=== PATIENT | female | born 1955 | race Caucasian/White ===

== ENCOUNTER 2020-01-26 09:05 | Emergency (ER) | payer MEDICARE, SELFPAY ==
[2020-01-26 09:12] VITALS: BP 150/70; PULSE 70; RESP 16; TEMP 36.8; O2SAT 99
--- NOTE | 2020-01-26 09:23 | ED.SKABFB ---
HPI - Skin/Abscess/Foreign Bdy General Chief complaint: Skin/Abscess/Foreign Body Stated complaint: Poison [place] Time Seen by Provider: 01/26/20 09:24 Source: patient and family History of Present Illness HPI narrative: PATIENT PRESENTS WITH A 5 DAY HISTORY OF ITCHY RASH TO LEFT ARMS AND RIGHT LOWER ABDOMEN. NO TROUBLE BREATHING NO SHORTNSS OF BREATH NO FEVER NO CHEST PAIN NO CONCERN FOR ZHENG. PATIENT STATES SHE WAS OUTSIDE WORKING AND THINKS SHE GOT INTO SOME POISON [place]. STATES SHE GETS IT EVERY YEAR. MD complaint: rash Related Data Home Medications Medication Instructions Recorded Confirmed denosumab 60 mg/mL subcutaneous 60 mg SUB-Q [id number] 09/22/19 syringe lansoprazole 30 mg capsule,delayed 30 mg PO DAILY 09/22/19 release obeticholic acid 10 mg tablet 10 mg PO DAILY 09/22/19 ursodiol 300 mg capsule 300 mg PO DAILY cap 09/22/19 Allergies Allergy/AdvReac Type Severity Reaction Status Date / Time Sulfa (Sulfonamide AdvReac Unknown Nausea and Verified 01/26/20 09:26 Antibiotics) Vomiting Review of Systems Review of Systems: Narrative: CONSTITUTIONAL: Denies fever, chills, or sweats. EYES: Denies visual changes, redness, or discharge. ENT: Denies rhinorrhea, congestion, sore throat, or otalgia. CARDIOVASCULAR: Denies chest pain, palpitations, or edema. RESPIRATORY: Denies cough or dyspnea. GASTROINTESTINAL: Denies abdominal pain, nausea, vomiting, or diarrhea. GENITOURINARY: Denies dysuria or hematuria. SKIN: Denies rash or itching. MUSCULOSKELETAL: Denies back pain, joint pain, or myalgia. NEUROLOGIC: Denies headache, numbness, or weakness. PSYCHIATRIC: Denies anxiety or depression. [facility] Past Medical History Medical History Age-related osteoporosis without current pathological fracture History of one miscarriage Hypercholesterolemia Osteoarthritis Primary biliary cholangitis UTI (urinary tract infection) Surgical History Surgical History History of breast surgery duct removal of left breast History of hysterectomy History of oophorectomy Family History Family History Father Hypertension HLD (hyperlipidemia) History of coronary artery bypass surgery Mother Family history of malignant neoplasm Osteoarthritis Daughter Osteoarthritis History of ITP Social History Social History Smoking status: Former smoker Smoking end date: 10/18/02 Alcohol intake: current Comments At time of signature, agree with nursing past medical, surgical, social and family history. There is no relevant family history pertinent to the presenting complaint Exam Narrative: Exam Narrative: GENERAL: Well-appearing, well-nourished, and in no acute distress. HEAD: Normocephalic, atraumatic. EYES: PERRLA and EOMI. ENT: Nares clear, no rhinorrhea or epistaxis. Mucous membranes moist. NECK: Supple. CHEST: Clear to auscultation. No respiratory distress. HEART: Regular rate and rhythm. No murmur heard. Normal peripheral pulses. ABDOMEN: Soft, nontender, nondistended, normal active bowel sounds. EXTREMITIES: Normal range of motion. No edema. SKIN: Warm, dry, no rash. RASH CONSISTENT WITH RHUS DERMATITIS. LINEAR LOPEZ WITH WET LIKE APPEARS ON NEW AREAS. DIFFERENT STAGES PRESENT. REDNESS TO LESIONS. NO SIGNS OF INFECTION OR CELLULITIS/ABSCESS. NO VESICLES. NO ULCERATIONS. NO RAISED URTICARIAL LESIONS. NO LESIONS ALONG THE WAISTBAND OR IN WEB SPACES. NO BURROWS. NO PETECHIAE. ? NEURO: No focal deficits. Alert and oriented x3. [place] Coma Scale Eye Opening: Spontaneous 4 [place]a Coma Scale Motor: Obeys Commands 6 [place] Coma Scale Verbal: Oriented 5 Maura Coma Scale Total 15 Course Vital Signs Vital signs: Vital Signs Temperature 36.8 C 01/26/20 09:12 Pulse Rate 70 04/
== END 2020-01-26 09:30 | disposition home or self-care (01) ==
PROVIDERS: Emergency Provider Nurse Practitioner Family; PCP Internal Medicine
DX: L23.7 Allergic contact dermatitis due to plants, except food (principal); Z87.891 Personal history of nicotine dependence; M81.0 Age-related osteoporosis without current pathological fracture; E78.00 Pure hypercholesterolemia, unspecified
CPT/HCPCS: 99213; G0463

== ENCOUNTER 2020-10-22 13:56 | Outpatient (CLI) | payer MEDICARE, SELFPAY ==
--- NOTE | ~2020-10-22 | DEXA_ITS ---
Bone Density Report Name: Leona Franks Age: 65 Sex: Female Ethnicity: White Date of : 1955 Indication: postmenopausal; hysterectomy; Referring Provider: HUNG SOTELO Study: Bone densitometry was performed. Exam Date: October 22, 2020 Accession number: [id number] Bone Density: Region BMD T-score Z-score Classification AP Spine (L1-L4) 0.688 -3.3 -1.3 Osteoporosis Femoral Neck (Left) 0.567 -2.5 -0.9 Osteoporosis Total Hip (Left) 0.710 -1.9 -0.5 Osteopenia Total Hip Bilateral Avg 0.709 -1.9 -0.6 Osteopenia Femoral Neck (Right) 0.578 -2.4 -0.8 Osteopenia Total Hip (Right) 0.707 -1.9 -0.6 Osteopenia World Health Organization criteria for BMD impression classify patients as: Normal (T-score at or above -1.0), Osteopenia (T-score between -1.0 and -2.5), or Osteoporosis (T-score at or below -2.5). 10-year Fracture Risk: FRAX not reported because: Some T-score for Spine Total or Hip Total or Femoral Neck at or below -2.5 Treated for osteoporosis Clinical Information Provided by Patient: Is being treated for osteoporosis Has used the following medications: Prolia (i.e. denosumab), Vitamin D, Calcium Has the following medical conditions: Hysterectomy Patient maximum height was 64.5 Menopause Age: 56 Drinks caffeinated beverages Onset of menses at age 12 Number of children 2 Impression: The patient has osteoporosis, based on the Total Spine T-score. Discussion: It is important to ask patients whether they are taking their medications and to encourage continued and appropriate compliance with their osteoporosis therapies to reduce fracture risk. It is also important to review their risk factors and encourage appropriate calcium and vitamin D intakes, exercise, fall prevention and other lifestyle measures. Follow-Up: Consider a repeat BMD and Vertebral Fracture Assessment (VFA) exam in 2 years or sooner if medically necessary, to reassess this patient's status. Reported by: [facility] on 10/22/2020 2:25:00 PM. Reviewed, dictated and finalized at location ANhung RIVAS
--- NOTE | ~2020-10-22 | MM_ITS ---
EXAMINATION: MM screening [facility] BI w kris HISTORY: Screening mammogram TECHNIQUE: Craniocaudal and mediolateral oblique 3-D tomosynthesis images were obtained and synthetic 2-D images were generated. CAD analysis was submitted and interpreted. COMPARISON: 09/25/2019, 08/16/2018, 07/29/2016 BREAST PARENCHYMAL COMPOSITION: The breasts are heterogeneously dense, which may obscure small masses . FINDINGS: There is no evidence of suspicious mass, calcification, or architectural distortion to sugg est malignancy in either breast. There has been no suspicious interval change. IMPRESSION: 1. No mammographic evidence of malignancy. 2. Recommend routine screening mammography in one year. BI-RADS Category 1: Negative Reviewed, dictated and finalized at location A. STITCHER
== END 2020-10-22 13:57 | disposition home or self-care (01) ==
LOC: ANHIMG 14:02
PROVIDERS: Visit Provider Obstetrics & Gynecology
DX: Z12.31 Encounter for screening mammogram for malignant neoplasm of breast (principal); Z78.0 Asymptomatic menopausal state; M81.0 Age-related osteoporosis without current pathological fracture; M85.852 Other specified disorders of bone density and structure, left thigh; M85.851 Other specified disorders of bone density and structure, right thigh
CPT/HCPCS: 77063; 77067; 77080

== ENCOUNTER 2022-11-17 12:53 | Outpatient (CLI) | payer MEDICARE, SELFPAY ==
--- NOTE | ~2022-11-17 | DEXA_ITS ---
Bone Density Report Name: DEANA RAMIREZ Age: 67 Sex: Female Ethnicity: White Date of : 1955 Indication: postmenopausal osteoporosis; monitoring treatment; hysterectomy; rheumatoid arthritis; Referring Provider: HUNG SOTELO Study: Bone densitometry was performed. Exam Date: November 17, 2022 Accession number: [id number] Bone Density: Region BMD T-score Z-score Classification AP Spine(L1-L4) 0.774 -2.5 -0.4 Osteoporosis Femoral Neck (Left) 0.618 -2.1 -0.3 Osteopenia Total Hip (Left) 0.733 -1.7 -0.2 Osteopenia Femoral Neck (Right) 0.581 -2.4 -0.7 Osteopenia Total Hip (Right) 0.686 -2.1 -0.6 Osteopenia Total Hip Mean 0.710 -1.9 -0.4 Osteopenia World Health Organization criteria for BMD impression classify patients as: Normal (T-score at or above -1.0), Osteopenia (T-score between -1.0 and -2.5), or Osteoporosis (T-score at or below -2.5). 10-year Fracture Risk: FRAX not reported because: Some T-score for Spine Total or Hip Total or Femoral Neck at or below -2.5 Treated for osteoporosis Previous Exams: Region Exam Age BMD T-score BMD Change BMD Change Date g/cm2 vs Baseline vs Previous AP Spine (L1-L4) 11/17/2022 67 0.774 -2.5 0.086 (12.5%)# 0.086 (12.5%)# 10/22/2020 65 0.688 -3.3 Total Hip(Left) 11/17/2022 67 0.733 -1.7 0.023 (3.2%)# 0.023 (3.2%)# 10/22/2020 65 0.710 -1.9 Total Hip(Right) 11/17/2022 67 0.686 -2.1 -0.021 (-3.0%) -0.021 (-3.0%) 10/22/2020 65 0.707 -1.9 *Denotes significance at 95% confidence level, LSC for AP Spine = 0.022 g/cm2, LSC for Total Hip = 0.027 g/cm2 # Denotes dissimilar scan types or analysis methods Clinical Information Provided by Patient: Has rheumatoid arthritis Is being treated for osteoporosis Has used the following medications: Prolia (i.e. denosumab), Vitamin D Has the following medical conditions: Hysterectomy Patient maximum height was 64.5 Menopause Age: 56 Drinks caffeinated beverages Onset of menses at age 12 Number of children 2 Impression: The patient has osteoporosis, based on the Total Spine T-score. No significant bone loss was observed. Discussion: PATIENT UNDER TREATMENT WITH NO SIGNIFICANT BMD LOSS SINCE LAST EXAM. In an untreated patient, BMD typically declines with age. A lack of decline or gain is usually a sign that treatment is efficacious and fracture risk is reduced. It is important to ask patients whether they are taking their medications and
== END 2022-11-17 12:54 | disposition home or self-care (01) ==
PROVIDERS: PCP Internal Medicine; Visit Provider Obstetrics & Gynecology
DX: M81.0 Age-related osteoporosis without current pathological fracture (principal); M85.89 Other specified disorders of bone density and structure, multiple sites
CPT/HCPCS: 77080

== ENCOUNTER 2023-02-12 09:23 | Outpatient (CLI) | payer MEDICARE, SELFPAY ==
--- NOTE | ~2023-02-12 | MM_ITS ---
EXAMINATION: MM screening [facility] BI w kris HISTORY: Screening mammogram TECHNIQUE: Craniocaudal and mediolateral oblique 3-D tomosynthesis images were obtained and synthetic 2-D images were generated. CAD analysis was submitted and interpreted. COMPARISON: , 10/05/2019, 08/16/2018 bilateral screening mammogram examinations BREAST PARENCHYMAL COMPOSITION: The breasts are heterogeneously dense, which may obscure small masses . FINDINGS: There is no evidence of suspicious mass, calcification, or architectural distortion to sugg est malignancy in either breast. There has been no suspicious interval change. IMPRESSION: 1. No mammographic evidence of malignancy. 2. Recommend routine screening mammography in one year. BI-RADS Category 1: Negative Reviewed, dictated and finalized at location A.
== END 2023-02-12 09:24 | disposition home or self-care (01) ==
LOC: ANHIMG 09:25
PROVIDERS: PCP Internal Medicine; Visit Provider Obstetrics & Gynecology
DX: Z12.31 Encounter for screening mammogram for malignant neoplasm of breast (principal)
CPT/HCPCS: 77063; 77067

== ENCOUNTER 2024-02-28 14:00 | Outpatient (CLI) | payer MEDICARE, SELFPAY ==
--- NOTE | ~2024-02-28 | CT_ITS ---
EXAMINATION: CT abdomen w con DATE: 02/28/2024 14:54 INDICATION: Primary biliary cholangitis,elevated liver enzymes TECHNIQUE: Computed tomography (CT) of the abdomen was performed with 100 mL Omnipaque-350 intravenou s contrast in the portal venous and arterial phases. Automated exposure control and iterative reconst ruction technique were employed. The dose-length product was 828.43 mGy-cm. COMPARISON: None. FINDINGS: Lower thorax: Unremarkable Liver: Subcentimeter right lobe hypodensity too small to characterize but most likely represents a cy st or hemangioma Biliary/Gallbladder: Gallbladder is normal. No bile duct dilation. Pancreas: No mass or duct dilation. Spleen: Granulomatous calcifications. Adrenals:No mass. Kidneys: No suspicious mass, obstructing stone, or hydronephrosis. GI tract: Mild distal esophageal and moderate gastric wall edema. Small hiatal hernia. No small or la rge bowel dilation. Normal appendix. Mesentery/Peritoneum: No ascites, mass, or free air. Retroperitoneum: No mass. Atherosclerotic abdominal aortic and/or arterial calcifications. No aneurys m, dissection, or significant branch vessel stenosis. Soft Tissues: Soft tissues and body wall unremarkable. Bones: No acute osseous finding. IMPRESSION: Mild esophagitis and moderate gastritis. Otherwise, no acute abdominal pelvic process detected. Specifically, there is no CT abnormality detec ioana in the liver, gallbladder, or biliary tract. Reviewed, dictated and finalized at location K. IMPRESSION: Mild esophagitis and moderate gastritis. Otherwise, no acute abdominal pelvic process detected. Specifically, there is n o CT abnormality detected in the liver, gallbladder, or biliary tract.
[2024-02-28 14:39] LABS: Estimated Glomerular Filt Rate > 60
== END 2024-02-28 14:01 ==
LOC: MICIMG 14:01
PROVIDERS: PCP Internal Medicine; Visit Provider Nurse Practitioner
DX: K74.3 Primary biliary cirrhosis (principal); R74.8 Abnormal levels of other serum enzymes; K20.90 Esophagitis, unspecified without bleeding
CPT/HCPCS: 74160; Q9967

== ENCOUNTER 2024-06-07 10:43 | Outpatient (CLI) | payer MEDICARE, SELFPAY ==
--- NOTE | ~2024-06-07 | MMUS_ITS ---
EXAMINATION: MM diagnostic [facility] BI w kris, US breast BI limited HISTORY: Palpable right breast lump. Nipple inversion for 2 weeks. TECHNIQUE: Additional 3-D tomosynthesis images of the breasts were performed and synthetic 2-D images were generated. CAD analysis was submitted and interpreted. High resolution limited bilateral breast ultrasound was performed. COMPARISON: Comparison to multiple prior studies sequentially, with oldest reviewed study dated 07/18. BREAST PARENCHYMAL COMPOSITION: Dense: The breasts are heterogeneously dense, which may obscure small masses FINDINGS: MAMMOGRAPHIC FINDINGS: There is a new partially obscured mass in the upper central aspect of the right breast, middle third, corresponding to the area of palpable concern. There are no suspicious masses, calcifications or arc hitectural distortion in the left breast to suggest malignancy. ULTRASOUND: Limited right breast ultrasound: At 12:00, 3 cm from the nipple is an irregular shaped mass with angu lar margins measuring 2.2 x 1.9 x 1.8 cm. There is mixed posterior attenuation with marginal vascular ity. Limited left breast ultrasound: Mildly prominent subareolar ducts. No discrete mass identified. IMPRESSION: 1. Suspicious 2.2 cm right breast mass at 12:00, 3 cm from the nipple. 2. Ultrasound-guided right breast biopsy recommended. BI-RADS category 4, suspicious findings. Reviewed, dictated and finalized at location B. IMPRESSION: 1. Suspicious 2.2 cm right breast mass at 12:00, 3 cm from the nipple. 2. Ultrasound-guided right breast biopsy recommended. BI-RADS category 4, suspicious findings.
== END 2024-06-07 10:44 | disposition home or self-care (01) ==
PROVIDERS: PCP Internal Medicine; Visit Provider Nurse Practitioner Obstetrics & Gynecology
DX: N63.15 Unspecified lump in the right breast, overlapping quadrants (principal); R92.8 Other abnormal and inconclusive findings on diagnostic imaging of breast
CPT/HCPCS: 76642; 77062; 77066; G0279

== ENCOUNTER 2024-06-22 11:26 | Outpatient (CLI) | payer MEDICARE, SELFPAY ==
--- NOTE | ~2024-06-22 | MM_ITS ---
MM post biopsy diagnostic RT 06/22/2024 13:38 INDICATION: Status post recent right breast biopsy. TECHNIQUE: Digital diagnostic right mammogram. COMPARISON: 06/07/2024 BREAST PARENCHYMAL COMPOSITION: Not dense: There are scattered areas of fibroglandular density. FINDINGS: Postbiopsy changes are noted in the right breast, consistent with recent ultrasound guided biopsy. Interval placement of tissue marker in the upper central aspect of the right breast. Please r efer to Dr. Claudette Elies's procedural report for details.] IMPRESSION: 1: Status post recent right breast biopsy with post procedure mammogram for marker placement. Reviewed, dictated and finalized at location B. IMPRESSION: 1: Status post recent right breast biopsy with post procedure mammogram for mar ker placement.
--- NOTE | 2024-06-22 13:03 | P.PCNBRBIO_ITS ---
Biopsy Procedure Date of Procedure 06/22/24 Indication Right breast mass Impression Right breast mass Procedure Performed Procedure Performed: US Breast Biopsy with Imaging Surgeon Claudette Lazaro MD Anesthesia Anesthesia: Local Description of Procedure Description of Procedure: Risk of the procedure were discussed with the patient which included but not limited to risk of bleeding, infection, possible need for repeat biopsy or addit ional procedures in the future, bruising, hematoma,etc. Benefits and alternatives to procedure were discussed as well. Consent was obtained and a time out was performed. The right breast mass was id entified using the US at 12 o'clock position 3 cm from the nipple, and lidocaine with epinephrine was used to anesthetize the skin and tissue surrounding the mass under US guidance. A 10g vacuum assisted device was used to obtain 4 core biopsy specimens under US guidance. An Inrad tissue marker clip was then placed at the biopsy site under US guidance. Pressure was held over the area for 10 minutes with excellent hemostasis. Core needle specimens were sent to pathology in formalin. Patient tolerated the procedure well with no immediate complications. A post-procedure right mammogram was obtained to confirm the tissue marker clip placement.
== END 2024-06-22 11:27 | disposition home or self-care (01) ==
PROVIDERS: PCP Internal Medicine; Visit Provider Surgery
DX: N63.15 Unspecified lump in the right breast, overlapping quadrants (principal); D05.11 Intraductal carcinoma in situ of right breast
CPT/HCPCS: 19083; 77065; 88305; 88342; 88360; A4648

== ENCOUNTER 2025-04-02 08:42 | Outpatient (CLI) | payer MEDICARE, SELFPAY ==
--- NOTE | ~2025-04-02 | DEXA_ITS ---
Bone Density Report Name: DEANA RAMIREZ Age: 69 Sex: Female Ethnicity: White Date of : 1955 Indication: postmenopausal osteoporosis; monitoring treatment; cancer; hysterectomy; Referring Provider: HUNG SOTELO Study: Bone densitometry was performed. Exam Date: April 02, 2025 Accession number: [id number] Bone Density: Region BMD T-score Z-score Classification AP Spine(L1-L4) 0.756 -2.6 -0.4 Osteoporosis Femoral Neck (Left) 0.569 -2.5 -0.6 Osteoporosis Total Hip (Left) 0.738 -1.7 -0.1 Osteopenia Femoral Neck (Right) 0.555 -2.6 -0.7 Osteoporosis Total Hip (Right) 0.699 -2.0 -0.4 Osteopenia Total Hip Mean 0.718 -1.9 -0.3 Osteopenia World Health Organization criteria for BMD impression classify patients as: Normal (T-score at or above -1.0), Osteopenia (T-score between -1.0 and -2.5), or Osteoporosis (T-score at or below -2.5). 10-year Fracture Risk: FRAX not reported because: Some T-score for Spine Total or Hip Total or Femoral Neck at or below -2.5 Treated for osteoporosis Previous Exams: -- Region Exam Age BMD T-score BMD Change BMD Change Date g/cm2 vs Baseline vs Previous -- AP Spine (L1-L4) 04/02/2025 69 0.756 -2.6 16.0%* -2.4% 11/17/2022 67 0.774 -2.5 18.8%* 19.4%* 08/16/2018 63 0.649 -3.6 -0.5% -0.5% 07/29/2016 61 0.652 -3.6 Total Hip(Left) 04/02/2025 69 0.738 -1.7 12.0%* 0.6% 11/17/2022 67 0.733 -1.7 11.3%* 8.7%* 08/16/2018 63 0.675 -2.2 2.4% 2.4% 07/29/2016 61 0.659 -2.3 Total Hip(Right) 04/02/2025 69 0.699 -2.0 2.1% 1.8% 11/17/2022 67 0.686 -2.1 0.3% 0.7% 08/16/2018 63 0.682 -2.1 -0.4% -0.4% 07/29/2016 61 0.684 -2.1 -- *Denotes significance at 95% confidence level, LSC for AP Spine = 0.022 g/cm2, LSC for Total Hip = 0.027 g/cm2 Clinical Information Provided by Patient: Is being treated for osteoporosis Has used the following medications: Prolia (i.e. denosumab), Vitamin D, Calcium Has the following medical conditions: Cancer, Hysterectomy Patient maximum height was 64.5 Menopause Age: 38 No regular weight bearing exercise Drinks caffeinated beverages Onset of menses at age 12 Number of children 2 Impression: The patient has osteoporosis, based on the Total Spine T-score. No significant bone loss was observed. Discussion: PATIENT UNDER TREATMENT WITH NO SIGNIFICANT BMD LOSS SINCE LAST EXAM. In an untreated patient, BMD typically declines with age. A lack of decline or gain is usually a sign that treatment is efficacious and fracture risk is reduced. It is important to ask patients whether they are taking their medications and to encourage continued and appropriate compliance with their osteoporosis therapies to reduce fracture risk. It is also important to review their risk factors and encourage appropriate calcium and vitamin D intakes, exercise, fall prevention and other lifestyle measures. Follow-Up: Consider a repeat BMD and Vertebral Fracture Assessment (VFA) exam in 2 years or sooner if medically necessary, to reassess this patient's status. Reported by: JEN on 04/02/2025 9:02:00 AM. Reviewed, dictated and finalized at location A.
== END 2025-04-02 08:43 | disposition home or self-care (01) ==
LOC: MICIMG 08:43
PROVIDERS: PCP Internal Medicine Medical Oncology; Visit Provider Obstetrics & Gynecology
DX: Z78.0 Asymptomatic menopausal state (principal); Z13.820 Encounter for screening for osteoporosis; M81.0 Age-related osteoporosis without current pathological fracture; M85.852 Other specified disorders of bone density and structure, left thigh; M85.851 Other specified disorders of bone density and structure, right thigh
CPT/HCPCS: 77080

== ENCOUNTER 2025-10-02 08:51 | Outpatient (CLI) | payer MEDICARE, SELFPAY ==
--- OUTSIDE RECORDS SUMMARY | 2025-10-02 09:35 | XMS_ITS | Clinical Summary ---
Author Organization [facility] Address [address] [place] [address] Care Team Providers Care Visitor Information Assistant Name Role Phone Juan José Ruiz DO Primary Care Provider Source Comments [facility],non-owned Affiliates and Associated Physician Practices is amultiple site organization consisting of ambulatory clinics and hospital sitesin [place], [place], [place] and [place]. This disclosure is being madepursuant to the Care Everywhere program and may not contain all information available regarding this patient. Last updated 18.[facility] Allergies Active Allergy Reactions Criticality Noted Date Comments Apremilast Nausea and/or Vomiti ng,GI Discomfort,Headache 05/21/2022 Sulfa Drugs Nausea and/or Vomiting Medium 11/02/2017 Medications * Be aware that medications may not be up to date on this document. Alwaysverify current medications with the patient. clobetasol (TEMOVATE) 0.05 % solution APPLY TO SCALP AND EARS ONCE DAILY 1 018 Active Denosumab (PROLIA SC) Inject subcutaneously once Every six months Active atorvastatin (Lipitor) 10 MG tablet Take 1 (one) tablet by mouth at bedtime 022 Active ursodiol (Eliel Forte) 500 MG tablet TAKE 2 TABLETS BY MOUTH ONCE DAILY 180 tablet 3 025 Active letrozole (Femara) 2.5 MG tablet Take 1 (one) tablet by mouth once daily 024 Active vitamin D, ergocalciferol , (Drisdol) 1.25 MG (39185 UT) capsule Take 1 (one) capsule by mouth every 7 days 024 Active lansoprazole (Prevacid) 30 MG capsuleIndicat ions:Gastroeso phageal reflux disease, unspecified whether esophagitis present TAKE ONE CAPSULE BY MOUTH 2 TIMES DAILY, BEFORE BREAKFAST AND SUPPER FOR 90 DAYS 180 capsule 3 025 Active Seladelpar Lysine (Livdelzi) 10 MG CAPS Take 10 mg by mouth once daily 90 capsule 3 025 2025 Active Ocaliva 10 MG TABSIndication s:Primary biliary cholangitis (HCC) Take 1 (one) tablet by mouth once daily 90 tablet 3 025 2024 Discontinued(T x Complete) Seladelpar Lysine (Livdelzi) 10 MG CAPS Take 10 mg by mouth once daily 30 capsule 11 025 2024 Discontinued(R eorder) Seladelpar Lysine (Livdelzi) 10 MG CAPS Take 10 mg by mouth once daily 90 capsule 3 025 2024 Discontinued Active Problems Problem Noted Date Diagnosed Date 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 Overview (11/24/2022): 11/05/20 Fibroscan CAP 249, LSM 6.9 kPa 11/20/22 Fibroscan CAP 210, LSM 6.7 kPa Pure hypercholesterolemia 11/17/2017 Overview (11/17/2017): 11/04 Cholesterol 230 HDL 87 LDL 126 triglyceride 75 Abnormal EKG 11/04/2017 Overview (11/04/2017): 08/03 EKG: SB at 54, LAE, RSR in V1/V2, possible anterior infarct, mild nonspecific ST abnormality Precordial chest pain 11/03/2017 Overview (11/17/2017): 11/04 stress nuclear 6:22--100% maximal heart rate, +CP (atypical), no EKG or nuclear ischemia, EF >75%, exercise tolerance 120% predicted Encounters Date Type Department Care Team Description 09/25/2025 Telephone [facility], [place] [address] Kathryn Avina APRN-CNP Med Question 09/21/2025 Refill [facility] - [address] [phone] Kathryn Avina APRN-CNP MEDICATION REFILL 09/20/2025 Orders Only [facility] - [address], [place] [phone] Kathryn Avina APRN-CNP Primary biliary cholangitis (HCC) 08/31/2025 Telephone [facility] - [address] [phone] Kathryn Avina APRN-CNP Medication Prior Auth Request from Last 3 Months Family History Medical History Relation Name Comments Cancer - Esophageal Mother Relation Name Status Comments Brother 1 Alive no heart dz; hy pertension Brother 2 Alive no heart dz; hy pertension; elevated cholesterol Father Alive CABG at 66 Maternal Grandfather (Age 70s) d ied of first CVA Mother (Age 71) no heart d z; GI cancer Paternal Aunt (Age 70's) valve r eplacement x3 Social History Tobacco Use Types Packs/Day Years Used Date Smoking Tobacco: Former Cigarettes 0 Q uit: 12/16/2013 Smokeless Tobacco: Never Tobacco Cessation:Counseling Given: Not Answered Alcohol Use Standard Drinks/Week Comments Yes 4 (1 standard drink = 0.6 oz pur e alcohol) 4-6 glass wine a week Comments Unknown Sex and Gender Information Value Date Recorded Sex Assigned at Not on file Legal Sex Female 12:55 PM CDT Gender Identity Not on file Sexual Orientation Not on file 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 Not on file Not on file N ot on file Last Filed Vital Signs Vital Sign Reading Time Taken Comments Blood Pressure 131/72 11/23/2024 11:04 AM RESERVOIR ENGINEER Pulse 59 11/23/2024 11:04 AM RESERVOIR ENGINEER Temperature 36.9 C (98.5 F) 11/23/2024 11:04 AM RESERVOIR ENGINEER Respiratory Rate 18 11/19/2023 10:51 AM RESERVOIR ENGINEER Oxygen Saturation 98% 11/23/2024 11:04 AM RESERVOIR ENGINEER Inhaled Oxygen Concentration - - Weight 69.4 kg (153 lb) 11/23/2024 11:04 AM RESERVOIR ENGINEER Height 160 cm (5' 3) 11/23/2024 11:04 AM RESERVOIR ENGINEER Body Mass Index 27.1 11/23/2024 11:04 AM RESERVOIR ENGINEER Plan of Treatment Upcoming Encounters Date Type Department Care Team (Late st Contact Info) Description 12/03/2025 9:30 AM RESERVOIR ENGINEER Office Visit [facility] [address], [place] [address] Kathryn Avina, PROFESSOR OF SOCIOLOGY-SEED EXPERT [address] [facility] [place] [address] Health Maintenance Due Date Last Done Comments BONE DENSITY TESTING 1955 COLOGUARD (AGES 45-75) - COL ON CA SCREENING 1955 CT COLONOGRAPHY - COLON CA SCREENING 1955 FIT - COLON CA SCREENING 1955 FLEX SIG - COLON CA SCREENING 1955 MAMMOGRAM 1955 COVID-19 VACCINE (#1) 1958 DTAP/TDAP/TD VACCINES (1 - Tdap) 1972 PNEUMOCOCCAL VACCINE 50+ (1 of 2 - PCV) 1972 Respiratory Syncytial Virus (RSV) Vaccine Pt: or over 60 yrs (1 - Risk 50-74 years 1-dose series) 2003 ZOSTER VACCINE (1 of 2) 2003 HEPATITIS B VACCINE (1 of 3 - Risk 3-dose series) 2013 DEPRESSION SCREENING 10/18/2024 MEDICARE AWV CALENDAR YEAR 2024 INFLUENZA VACCINE (#1) 2025 2, 06/04/2020 COLON MONITORING 04/18/2031 04/18/2021, 04/18/2021 COLONOSCOPY - COLON CA SCREENING 04/18/2031 04/18/2021, 04/18/2021 Colorectal Cancer Screening 04/18/2031 HEPATITIS C SCREENING Completed 10/05/2017 HIB VACCINE Aged Out No longer eligi ble based on patient's age to complete this topic HPV VACCINE Aged Out No longer eligi ble based on patient's age to complete this topic MENINGOCOCCAL (Group B) VACCINE SHARED DECISION-MAKING Aged Out No longer eligible based on patient's age to complete this topic MENINGOCOCCAL GROUPS A/C/Y/W VACCINE Aged Out No longer eligible b ased on patient's age to complete this topic Goals Goal Patient Goal Type Associated Problems Recent Progress Patient-Stated? Author Medication Management General On track( 025 11:07 AM RESERVOIR ENGINEER) No Chula Carlos, RN Note: Expected end date: Ongoing Interventions: Take all medications as prescribed Let your doctor know right away about any changes in your medications Make sure to request a refill of your medication at least one week prior to your last dose Procedures Procedure Name Priority Date/Time Associated Diagnosis Comments ENDOSCOPY, COLON, SCREENING Routine 04/18/2021 10:09 AM CDT HEPATITIS C AB W/RFLX TO HCV RNA QN PCR Routine 10/05/2017 7:06 AM RESERVOIR ENGINEER from Last 3 Months or Most Recently Relevant to Health Maintenance Results * ENDOSCOPY, COLON, SCREENING (04/18/2021 10:09 AM CDT) Report Endoscopy POC Endoscopy Department Report _ Patient Name: Deana Ramirez Procedure Date: 04/18/2021 10:09 AM Date of : 1955 Classification: Outpatient Gender: Female Ethnicity: Not or Race: White _ Providers: Murray Mayer Referring MD: Juan José uRiz (Referring MD) Procedure: Colonoscopy Indications: Surveillance: Personal history of colonic polyps (unknown histology) on last colonoscopy 5 years ago, Last colonoscopy: April 2016 Medications: Propofol per Anesthesia, See the Anesthesia note for documentation of the administered medications Description of Procedure: Pre-Anesthesia Assessment: - Pre-procedure physical examination revealed no contraindications to sedation. - After reviewing the risks and benefits, the patient was deemed in satisfactory condition to undergo the procedure. - The anesthesia plan was to use monitored anesthesia care (MAC). - Immediately prior to administration of medications, the patient was re-assessed for adequacy to receive sedatives. After I obtained informed consent, the scope was passed under direct vision. Throughout the procedure, the patient's blood pressure, pulse, and oxygen saturations were monitored continuously. The [id number] was introduced through the anus and advanced to the cecum, identified by appendiceal orifice and ileocecal valve. The colonoscopy was performed without difficulty. The patient tolerated the procedure well. The quality of the bowel preparation was good. Findings: The perianal and digital rectal examinations were normal. A 6 mm polyp was found in the cecum. The polyp was sessile. The polyp was removed with a cold snare. Resection and retrieval were complete. A 2 mm polyp was found in the cecum. The polyp was sessile. The polyp was removed with a jumbo cold forceps. Resection and retrieval were complete. A 2 mm polyp was found in the sigmoid colon. The polyp was sessile. The polyp was removed with a jumbo cold forceps. Resection and retrieval were complete. The exam was otherwise without abnormality on direct and retroflexion views. Estimated Blood Loss: Estimated blood loss: none. Complications: No immediate complications. Impression: - One 6 mm polyp in the cecum, removed with a cold snare. Resected and retrieved. - One 2 mm polyp in the cecum, removed with a jumbo cold forceps. Resected and retrieved. - One 2 mm polyp in the sigmoid colon, removed with a jumbo cold forceps. Resected and retrieved. - The examination was otherwise normal on direct and retroflexion views. Recommendation: - Patient has a contact number available for emergencies. The signs and symptoms of potential delayed complications were discussed with the patient. Return to normal activities tomorrow. Written discharge instructions were provided to the patient. - Discharge patient to home (ambulatory). - Resume previous diet. - Continue present medications. - Await pathology results. - Repeat colonoscopy in 3 - 5 years for surveillance based on pathology results. - Return to GI office at appointment to be scheduled. - The findings and recommendations were discussed with the patient. Attending Participation: I personally performed the entire procedure. Procedure Code(s): --- Professional --- 25343, Colonoscopy, flexible; with removal of tumor(s), polyp(s), or other lesion(s) by snare technique 10407, 59, Colonoscopy, flexible; with biopsy, single or multiple Diagnosis Code(s): --- Professional --- Z86.010, Personal history of colonic polyps K63.5, Polyp of colon CPT copyright 2019 [employer] [place] [employer]. All rights reserved. The codes documented in this report are preliminary and upon fuels sales representative review may be revised to meet current compliance requirements. Murray Mayer, 04/18/2021 11:02:46 AM Note Initiated On: 04/18/2021 10:09 AM Number of Addenda: [address] [address] [facility] 04/18/2021 10:0 9 AM CDT Murray Mayer MD GI PROCEDURE ORDERABLES Edited Result - Final [facility] * HEPATITIS C AB W/RFLX TO HCV RNA QN PCR (10/05/2017 7:06 AM RESERVOIR ENGINEER) Hepatitis C Antibody NON-REACTI VE NON-REACT [facility] Signal/Cutoff 0.01 <1.00 [facility] Comment: REPORT COMMENT: FASTING:NO Test Performed at: [facility] [employer] [address] [place] [address] TERRENCE DUBOSE DO,MPH 10/05/2017 7:06 AM RESERVOIR ENGINEER 10/05/2017 7:07 AM RESERVOIR ENGINEER us Eitan Hodges MD LAB - CHEMISTRY ORDERABLES [place] Result [facility]) [id number] from Last 3 Months or Most Recently Relevant to Health Maintenance Insurance AETNA AETNA MEDICARE ADV Care Teams Visitor Information Assistant Relationship Specialty Start Date End Date Juan José Ruiz DO PCP - General Internal Medicine 11/04/17
--- OUTSIDE RECORDS SUMMARY | 2025-10-02 09:35 | XMS_ITS | Clinical Summary ---
Author Organization [facility] Address [facility] [address] Care Team Providers Care Research Administrator Name Role Phone Juan José Ruiz DO Primary Care Provider [phone] CortezJuan CarlosNhung DO Unavailable [phone] Allergies Active Allergy Reactions Criticality Noted Date Comments Sulfa (Sulfonamide Antibiotics) Nausea And Vomiting Medium 11/02/2017 Medications denosumab (PROLIA) 60 mg/mL syringe Inject under the skin once Active atorvastatin (LIPITOR) 10 mg tablet Take 1 tablet (10 mg total) by mouth nightly Active clobetasoL (CLOBEX) 0.05 % shampoo WASH SCALP TWICE WEEKLY 04/09/20 24 Active clobetasoL (TEMOVATE) 0.05 % external solution PLEASE SEE ATTACHED FOR DETAILED DIRECTIONS Active ergocalciferol (VITAMIN D) 50,000 unit capsule TAKE 1 CAPSULE BY MOUTH WEEKLY 05/12/20 24 Active lansoprazole (PREVACID) 30 mg capsule TAKE ONE CAPSULE BY MOUTH 2 TIMES DAILY, BEFORE BREAKFAST AND SUPPER FOR 90 DAYS 06/21/20 24 Active ursodioL (JHON FORTE) 500 mg tablet Take 2 tablets (1,000 mg total) by mouth daily Active Livdelzi 10 mg capsule Take 10 mg by mouth daily 01/09/20 25 026 Active letrozole (FEMARA) 2.5 mg tabletIndicatio ns:Malignant 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, estrogen receptor positive (HCC),Invasive lobular carcinoma of right breast in female (HCC) TAKE 1 TABLET BY MOUTH EVERY DAY 90 tablet 1 09/26/20 25 Active letrozole (FEMARA) 2.5 mg tabletIndicatio ns:Malignant 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, estrogen receptor positive (HCC),Invasive lobular carcinoma of right breast in female (HCC) Take 1 tablet (2.5 mg total) by mouth daily 90 tablet 1 04/19/20 25 025 Discontinued Active Problems Problem Noted Date Diagnosed Date Malignant neoplasm of overla pping sites of right breast in female, estrogen receptor positive 07/11/2024 Encounters Date Type Department Care Team Description 08/17/2025 9:45 AM CDT Office Visit [facility] [address] [place] [address] [address] [place] [id number] Juan Carlos Toro, DO Malignant 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, estrogen receptor positive (HCC) (Primary Dx) 08/17/2025 9:15 AM CDT Lab [facility] at [address] [address] Malignant 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, estrogen receptor positive (HCC) from Last 3 Months Immunizations Immunization Administration Dates Next Due Influenza, Quadrivalent, Spl it, Preservative Free, Intramuscular 08/14/2022 Surgical History Surgery Date Site/Laterality Comments BREAST SURGERY Left duct removal in her 40's HYSTERECTOMY OOPHORECTOMY MASTECTOMY Right 10/2024 Medical History Medical History Date Comments Hypercholesteremia Liver disease Osteoporosis Mononucleosis Primary biliary cirrhosis Breast cancer (HCC) 2023 Family History Medical History Relation Name Comments liver failure Child Stroke Maternal Grandfather Heart failure Maternal Grandmother gastroesophgeal cancer Mother No Known Problems Paternal Grandfather No Known Problems Paternal Grandmother Relation Name Status Comments Child Father Alive Maternal Grandfather Maternal Grandmother Mother Paternal Grandfather Paternal Grandmother Social History Tobacco Use Types Packs/Day Years Used Date Smoking Tobacco: Former Cigarettes 1 10 S tarted: 2016 Tobacco Cessation:Counseling Given: Not Answered AUDIT-C Answer Date Recorded Frequency of Alcohol Consumption Not on file 08/17/2025 Q2: How many drinks containi ng alcohol do you have on a typical day when you are drinking? 1 or 2 08/17/2025 Q3: How often do you have si x or more drinks on one occasion? 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 Gender Identity Not on file Sexual Orientation Not on file Occupation Industry Job Start Date Job End Date teacher Not on file Not on file Not on file Obstetrics History Para Term AB IAB SAB Ectopic Multiple Livin g Live Births 3 2 Date Outcome GA Total Labor Labor/2nd/3rd Weight Sex Type Anes PTL Jennifer A1 A5 Name Clin Last Filed Vital Signs Vital Sign Reading Time Taken Comments Blood Pressure 118/79 08/17/2025 9:46 AM CDT Pulse 63 08/17/2025 9:46 AM CDT Temperature 36.7 C (98 F) 08/17/2025 9:46 AM CDT Respiratory Rate 18 08/17/2025 9:46 AM CDT Oxygen Saturation 98% 08/17/2025 9:46 AM CDT Inhaled Oxygen Concentration - - Weight 68 kg (149 lb 14.6 oz) 08/17/2025 9:46 AM CDT Height 162 cm (5' 3.78) 08/17/2025 9:46 AM CDT Body Mass Index 25.91 08/17/2025 9:46 AM CDT Plan of Treatment Health Maintenance Due Date Last Done Comments Colon Cancer Screening-Colonoscopy 1955 Depression Screening 1953 Fall Risk Assessment 1953 Hepatitis C Screening 1955 Osteoporosis Screening-Bone Density Scan 1953 DTaP/Tdap/Td Vaccine (1 - Tdap) 1964 Hepatitis B Screening 1971 Pneumococcal vaccine 65+ (1 of 2 - PCV) 1972 Zoster Vaccine (1 of 2) 1972 Well Visit 65+ 2018 Covid-19 Vaccine (6 - 2024-2 6 season) 2025 08/03/2022, 02/20/2022, 08/13/2021, Additional history exists Influenza Vaccine (#1) 2025 , 08/03/2022, 08/13/2021 Breast Cancer Screening-Mammogram 06/19/2026 025 Procedures Procedure Name Priority Date/Time Associated Diagnosis Comments EGFR Routine 08/17/2025 9:15 AM CDT Malignant 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, estrogen receptor positive (HCC) DIFFERENTIAL AUTO Routine 08/17/2025 9:1 5 AM CDT Malignant 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, estrogen receptor positive (HCC) CBC WITH AUTO DIFFERENTIAL Routine 08/17/2025 9:15 AM CDT Malignant 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, estrogen receptor positive (HCC) COMPREHENSIVE METABOLIC PANEL Routine 08/17/2025 9:15 AM CDT Malignant 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 73 m2 Comment: Interpretive Data Reference Interval Normal >/= 90 mL/min/1.73m2 Mildly decreased* 60 - 89 mL/min/1.73m2 Mildly to moderately decreased 45 - 59 mL/min/1.73m2 Moderately to severely decreased 30 - 44 mL/min/1.73m2 Severely decreased 15 - 29 mL/min/1.73m2 Kidney Failure < 15 mL/min/1.73m2 *Relative to young adult level Estimated glomerular filtration rate is determined by the 2020 CKD-EPI equation recommended by the National Kid[employer] (A Unifying Approach to GFR Estimation: Recommendations of the NKF-ASK Task Force on Reassessing the Inclusion of Race in Diagnosing Kidney Disease, JASN 2020). The CKD-EPI equation should not be used for patients with unstable renal function and has not been validated in children and those over 70. Current interpretive data was last reviewed 2021. Testing performed by: [address] [address] Blood 08/17/2025 9:15 AM CDT 08/17/2025 9:16 AM CDT us Juan Carlos Toor DO LAB BLOOD ORDERABLES Final R esult [facility] [address] [facility] Department [place] [address] * Differential, auto (08/17/2025 9:15 AM CDT) Neutrophil abs 3.84 1.50 - 6.50 K/cumm Comment:Testing performed by : [address] [address] Imm gran abs 0.03 0.00 - 0.10 K/cumm [facility] Comment:Testing performed by : [address] [address] Lymphocyte abs 1.80 0.80 - 3.30 K/cumm [facility] Comment:Testing performed by : [address] [address] Monocyte abs 0.53 0.20 - 0.80 K/cumm [facility] Comment:Testing performed by : [address] [address] Eosinophil abs 0.18 0.00 - 0.50 K/cumm [facility] Comment:Testing performed by : [address] [address] Basophil abs 0.06 0.00 - 0.10 K/cumm [facility] Comment:Testing performed by : [address] [address] Neutrophil pct 59.6 % [facility] Comment: Interpretive Data Percent cell count reference ranges are not reported, since discordance with absolute values may lead to misinterpretation of CBC data. Current Interpretive Data was last revised on 2018. Testing performed by: [address] [address] Imm gran pct 0.5 % [facility] Comment: Interpretive Data Percent cell count reference ranges are not reported, since discordance with absolute values may lead to misinterpretation of CBC data. Current Interpretive Data was last revised on 2018. Testing performed by: [address] [address] Lymphocyte pct 28.0 % [facility] Comment: Interpretive Data Percent cell count reference ranges are not reported, since discordance with absolute values may lead to misinterpretation of CBC data. Current Interpretive Data was last revised on 2018. Testing performed by: [address] [address] Monocyte pct 8.2 % [facility] Comment: Interpretive Data Percent cell count reference ranges are not reported, since discordance with absolute values may lead to misinterpretation of CBC data. Current Interpretive Data was last revised on 2018. Testing performed by: [address] [address] Eosinophil pct 2.8 % [facility] Comment: Interpretive Data Percent cell count reference ranges are not reported, since discordance with absolute values may lead to misinterpretation of CBC data. Current Interpretive Data was last revised on 2018. Testing performed by: [address] [address] Basophil pct 0.9 % [facility] Comment: Interpretive Data Percent cell count reference ranges are not reported, since discordance with absolute values may lead to misinterpretation of CBC data. Current Interpretive Data was last revised on 2018. Testing performed by: [address] [address] Blood 08/17/2025 9:15 AM CDT 08/17/2025 9:16 AM CDT us Juan Carlos Toro DO LAB BLOOD ORDERABLES Final R esult [facility] [address] [facility] Department [place] [address] * (ABNORMAL) CBC with auto differential (08/17/2025 9:15 AM CDT) [facility] WBC 6.44 3.80 - 9.90 K/cumm Comment:Testing performed by : [address], [address] Hgb 12.1 11.9 - 15.5 g/dL [facility] Comment:Testing performed by : [address] [address] Hct 36.2 35.6 - 45.5 % [facility] Comment:Testing performed by : [address] [address] Plt 182 150 - 400 K/cumm [facility] Comment:Testing performed by : [address] [address] MPV 13.0(H) 9.1 - 12.3 fL [facility] Comment:Testing performed by : [address], [address] RBC 3.70(L) 3.90 - 5.20 M/cumm [facility] Comment:Testing performed by : [address] [address] MCV 97.8(H) 81.3 - 96.4 fL [facility] Comment:Testing performed by : [address], [address] MCH 32.7 27.1 - 33.3 pg [facility] Comment:Testing performed by : [address] [address] MCHC 33.4 32.3 - 35.7 g/dL [facility] Comment:Testing performed by : [address] [address] RDW CV 12.4 11.1 - 14.9 % [facility] Comment:Testing performed by : [address] [address] RDW SD 44.6 35.7 - 48.1 fL [facility] Comment:Testing performed by : [address] [address] NRBC abs 0.00 0.00 - 0.01 K/cumm [facility] Comment:Testing performed by : [address] [place] [address] ANC Prelim 3.84 1.50 - 6.50 K/cumm [facility] Comment: Interpretive Data The rapid ANC is a preliminary automated count and may vary from the final ANC (Neut Abs) reported in the WBC differential that follows. Current interpretive data was last revised 2025. Testing performed by: [address] [address] Blood 08/17/2025 9:15 AM CDT 08/17/2025 9:16 AM CDT us Juan Carlos Toro DO LAB BLOOD ORDERABLES Final R esult [facility] [address] [facility] Department [place] [address] * Comprehensive metabolic panel (08/17/2025 9:15 AM CDT) Sodium 137 135 - 145 mmol/L Comment:Testing performed by : [address] [address] Potassium, pl 4.0 3.3 - 4.9 mmol/L [facility] Comment:Testing performed by : [address] [address] Chloride 100 97 - 110 mmol/L [facility] Comment:Testing performed by : [address] [address] CO2 24 22 - 32 mmol/L [facility] Comment:Testing performed by : [address] [address] Anion gap 13 2 - 15 mmol/L [facility] Comment:Testing performed by : [address] [address] BUN 18 6 - 25 mg/dL [facility] Comment:Testing performed by : [address] [address] Creatinine 0.60 0.60 - 1.10 mg/dL [facility] Comment:Testing performed by : [address] [address] Glucose 99 70 - 199 mg/dL [facility] Comment: Interpretive Data Fasting glucose >/= 126 mg/dl is diagnostic for diabetes. Fasting is defined as no caloric intake for at least 8 hours. Fasting glucose between 100 mg/dl to 125 mg/dl is diagnostic of prediabetes. In a patient with classic symptoms of hyperglycemia or hyperglycemic crisis, a random glucose >/= 200 mg/dl is diagnostic for diabetes. In the absence of unequivocal hyperglycemia, results should be confirmed by repeat testing. The classification and Diagnosis of Diabetes Diabetes Care 2021; 46: S19-S40. Current interpretive data was last revised 2022. Testing performed by: [address] [address] Calcium 9.6 8.5 - 10.3 mg/dL [facility] Comment:Testing performed by : [address] [address] Bilirubin, total 0.4 0.1 - 1.2 mg/dL [facility] Comment:Testing performed by : [address] [address] Protein, pl 7.5 6.5 - 8.5 g/dL [facility] Comment:Testing performed by : [address] [address] Albumin 4.5 3.5 - 5.0 g/dL [facility] Comment:Testing performed by : [address] [address] Alk phos 94 40 - 130 Units/L [facility] Comment:Testing performed by : [address] [address] ALT 13 7 - 45 Units/L [facility] Comment:Testing performed by : [address] [address] AST 20 10 - 45 Units/L [facility] Comment:Testing performed by : [address] [address] Blood 08/17/2025 9:15 AM CDT 08/17/2025 9:16 AM CDT Juan Carlos Toro DO LAB BLOOD ORDERABLES Final R esult [facility] [address] [facility] Department [place] [address] * Screening Mammogram Left W Rand Unilateral Only (06/19/2025 10:07 AM CDT) Anatomical Region Laterality Modality Breast Left Mammography Impressions 06/19/2025 10:27 AM CDT No evidence of malignancy. OVERALL BI-RADS FINAL ASSESSMENT: 1 - Negative RECOMMENDATION: Recommend left breast annual screening mammography. If supplemental screening is desired for heterogeneously dense breast tissue, consider breast MRI every 1-2 years. If breast MRI cannot be performed, contrast-enhanced mammography is an alternative. Narrative 06/19/2025 10:27 AM CDT EXAMINATION: Screening Mammogram Left W Rand Unilateral Only: 06/19/2025 COMPARISON: Relevant prior studies available at the time of interpretation were reviewed, including the most recent mammogram on: 06/22/2024. TECHNIQUE: Mammography was performed with 2D and 3D digital breast tomosynthesis (DBT) images. CAD was utilized. BREAST PARENCHYMAL COMPOSITION: The breasts are heterogeneously dense, which may obscure small masses. FINDINGS: There is no suspicious mass, calcification, or architectural distortion. us Lauro Williamson MD IMG MAMMO PROCEDURES Final Re sult from Last 3 Months or Most Recently Relevant to Health Maintenance Insurance T MEDICARE AETNA MEDICARE Care Teams Research Administrator Relationship Specialty Start Date End Date Juan José Ruiz DO PCP - General Internal Medicine 06/29/24 Juan Carlos Toro DO [address] [place] [place] [address] MEDICAL ONCOLOGY, [facility] [address] [place] [address] Medical Oncologist/[employer] Picking Machine Operator Hematology and Oncology 09/18/24
== END 2025-10-02 08:52 | disposition home or self-care (01) ==
LOC: ANHBWCAUD 08:52
PROVIDERS: PCP Internal Medicine
DX: H90.3 Sensorineural hearing loss, bilateral (principal)
CPT/HCPCS: 92557; 92567